=== PATIENT | female | born 1960 | race Caucasian/White ===

== ENCOUNTER 2020-07-18 07:41 | Outpatient (CLI) | payer OTHER, SELFPAY ==
--- NOTE | 2020-07-18 07:52 | ECHO_ITS ---
Patient Info Name: Marianela Vieira Age: 60 years : 1960 Gender: Female Ht: 67 in Wt: 200 lbs BSA: 2.10 m2 BP: 152 / 87 mmHg Technical Quality: Good Exam Date: 07/18/2020 8:01 AM Exam Location: [facility] Patient Status: Outpatient Admit Date: 07/18/2020 Staff Ordering Physician: Carlyn Miles NP Steward/Stewardess Smoke Room: Nicolette Latham RDCS Attending Provider: Carlyn Miles NP Referring Physician: Jd ANDRADE; Exam Type: CA echo doppler color flow Study Info Indications R42 - Dizziness and giddiness Complete two-dimensional, color flow and Doppler transthoracic echocardiogram is performed. Summary 1. Complete two-dimensional, color flow and Doppler transthoracic echocardiogram is performed. 2. Left ventricular chamber dimension is normal. 3. Ventricular septum is sigmoid shaped. No LVOT obstruction. 4. Left ventricular systolic function is normal, estimated at 65-70%. 5. The left ventricular diastolic function is grade I diastolic dysfunction. 6. E/e' 9 is minimally elevated. 7. Global longitudinal strain is normal at -18.8%. 8. Left atrial chamber dimension is mildly enlarged. 9. There is mild aortic valve sclerosis. 10. There is trace mitral valve regurgitation. 11. There is trace tricuspid valve regurgitation. 12. No pulmonary hypertension, estimated pulmonary arterial systolic pressure is 27 mmHg. Left Ventricle E/e' 9 is minimally elevated. Global longitudinal strain is normal at -18.8%. Ventricular septum is sigmoid shaped. No LVOT obstruction. Left ventricular chamber dimension is normal. Left ventricular systolic function is normal, estimated at 65-70%. The left ventricular diastolic function is grade I diastolic dysfunction. Right Ventricle Right ventricular chamber dimension is normal. Right ventricular systolic function is normal. Left Atria Left atrial chamber dimension is mildly enlarged. Right Atria Right atrial chamber dimension is normal. Aortic Valve The aortic valve is trileaflet. There is mild aortic valve sclerosis. There is no aortic valve stenosis. There is no aortic valve regurgitation. Pulmonic Valve There is no pulmonic regurgitation. Mitral Valve There is no mitral valve stenosis. There is trace mitral valve regurgitation. Tricuspid Valve There is trace tricuspid valve regurgitation. No pulmonary hypertension, estimated pulmonary arterial systolic pressure is 27 mmHg. Pericardium/Pleural There is no pericardial effusion. Inferior Vena Cava Normal inferior vena cava with >50% collapse upon inspiration consistent with normal right atrial pressure, 5 mmHg. Aorta The aortic root size at the sinus of Valsalva is normal. Left Ventricular Outflow Tract Name Value Normal LVOT 2D LVOT Diameter 2.0 cm LVOT Doppler LVOT Peak Gradient 4 mmHg LVOT Mean Gradient 2 mmHg LVOT VTI 19 cm LVOT VTI/AV VTI Ratio 0.7 LVOT Stroke Volume 60 ml LVOT CO 5.0 l/min
== END 2020-07-18 07:42 | disposition home or self-care (01) ==
PROVIDERS: PCP Internal Medicine; Visit Provider Nurse Practitioner
DX: R42 Dizziness and giddiness (principal)
CPT/HCPCS: 93306

== ENCOUNTER → 2020-10-04 07:18 | Outpatient (CLI) | payer OTHER, SELFPAY ==
--- NOTE | ~2020-10-04 | MM_ITS ---
EXAMINATION: MM screening [place] BI w elmo HISTORY: Screening mammogram TECHNIQUE: Craniocaudal and mediolateral oblique 3-D tomosynthesis images were obtained and synthetic 2-D images were generated. CAD analysis was submitted and interpreted. COMPARISON: 08/06/2019 diagnostic right digital mammogram and limited right breast ultrasound 07/20/2019, 07/18/2018 bilateral digital screening mammogram examinations BREAST PARENCHYMAL COMPOSITION: There are scattered areas of fibroglandular density. FINDINGS: Scattered bilateral punctate benign microcalcifications. Stable circumscribed 3 mm opacity in the upper inner right breast (craniocaudal Tomosynthesis image 5 7/85; MLO Tomosynthesis image 57/79). There is no evidence of suspicious mass, calcification, or architectural distortion to suggest malign jose in either breast. There has been no suspicious interval change. IMPRESSION: 1. No mammographic evidence of malignancy. 2. Recommend routine screening mammography in one year. BI-RADS Category 2: Benign finding(s). Reviewed, dictated and finalized at location A. SQL DEVELOPER
== END ==
PROVIDERS: PCP Internal Medicine; Visit Provider Nurse Practitioner
DX: Z12.31 Encounter for screening mammogram for malignant neoplasm of breast (principal)
CPT/HCPCS: 77063; 77067

== ENCOUNTER 2021-05-17 10:25 | Emergency (ER) | payer OTHER, SELFPAY ==
[2021-05-17 10:41] VITALS: BP 140/71; PULSE 76; RESP 18; TEMP 37.1; O2SAT 100
--- NOTE | 2021-05-17 10:55 | ED.URI ---
HPI - URI/Sore Throat General Chief Complaint: Upper Respiratory Infection Stated Complaint: Cough,Rt Ear Pain Time Seen by Provider: 05/17/21 10:55 Source: patient Mode of arrival: ambulatory Limitations: no limitations History of Present Illness HPI Narrative: Marianela Vieira is a 60 yo female with a PMH of depression, fibromyalgia, high cholesterol, who comes to express care with R ear pain and runny nose. x 10 days, nose is dry with mucinex; she feels she needs additional medication Related Data Home Medications Medication Instructions Recorded Confirmed aspirin 81 mg tablet,delayed 81 mg PO DAILY 06/09/19 05/17/21 release cholecalciferol (vitamin D3) 25 5,000 unit PO DAILY cap 08/04/19 05/17/21 mcg (1,000 unit) capsule multivitamin 3 tablet PO DAILY tablet 08/04/19 05/17/21 estradiol 1 gm VAGINAL WEEKLY PRN 12/29/19 05/17/21 diclofenac sodium 75 mg PO BID 05/17/21 05/17/21 Allergies Allergy/AdvReac Type Severity Reaction Status Date / Time atorvastatin Allergy Unknown muscle pain Verified 05/17/21 10:51 clarithromycin Allergy Unknown unknown Verified 05/17/21 10:51 codeine Allergy Unknown Hallucinati Verified 05/17/21 10:51 ng erythromycin base Allergy Unknown unknown Verified 05/17/21 10:51 ioversol Allergy Unknown Hives Verified 05/17/21 10:51 levofloxacin Allergy Unknown tendon pain Verified 05/17/21 10:51 naproxen Allergy Unknown runny nose Verified 05/17/21 10:51 pitavastatin Allergy Unknown muscle pain Verified 05/17/21 10:51 pravastatin Allergy Unknown muscle pain Verified 05/17/21 10:51 simvastatin Allergy Unknown muscle pain Verified 05/17/21 10:51 Fpbfzeq-FQK-AsJ Reductase Allergy Unknown ENTIRE Verified 05/17/21 10:51 Inhibitor BODY PAIN [Uczaqxr-Buf-Zpu Reductase Inhibitor] strawberry Allergy Unknown Hives Verified 05/17/21 10:51 Sulfa (Sulfonamide Allergy Unknown itchy Verified 05/17/21 10:51 Antibiotics) throat sulfanilamide Allergy Unknown itchy Verified 05/17/21 10:51 throat adhesive tape AdvReac Unknown RASH Verified 05/17/21 10:51 Contrast Media Allergy Unknown FLUSHING, Uncoded 05/17/21 10:51 WARM, RASH. Review of Systems Review of Systems: CONSTITUTIONAL: Denies fever, chills, sweats. EYES: Denies visual changes, redness, discharge. ENT: Has rhinorrhea, has congestion, minimal sore throat, otalgia. CARDIOVASCULAR: Denies chest pain, palpitations, edema. RESPIRATORY: Denies dyspnea, wheezing, cough GASTROINTESTINAL: Denies abdominal pain, nausea, vomiting, diarrhea. GENITOURINARY: Denies dysuria, hematuria, abnormal discharge SKIN: Denies rash or itching. NEUROLOGIC: Denies numbness, or focal weakness. PSYCHIATRIC: Denies anxiety or depression. [facility], [facility] Past Medical History Medical History Biceps tendonitis on left Bronchitis Cholecystectomy planned Depression Elbow injury Chipped bone in right elbow. Elevated liver enzymes Fibromyalgia Food allergy Hyperlipidemia Hypertension Medial epicondylitis of right elbow Radial head fracture, closed Seasonal allergic rhinitis Shoulder impingement syndrome Shoulder pain Tremor Surgical History Surgical History H/O adenoidectomy H/O knee surgery 1980 H/O sinus surgery H/O: hysterectomy History of appendectomy History of tonsillectomy Family History Family History Father Family history of diabetes mellitus in first degree relative Family history of malignant melanoma Family history of heart disease in male family member before age 55 Diabetes mellitus Hypertension Family history of elevated blood lipids Family history of cardiovascular disease Malignant neoplasm of prostate Mother Family history of malignant neoplasm of skin Grandparent Carcinoma of colon Sibling Family history of elevated blood lipids Other Family
== END 2021-05-17 11:56 | disposition home or self-care (01) ==
PROVIDERS: Emergency Provider Nurse Practitioner; PCP Internal Medicine
DX: J01.00 Acute maxillary sinusitis, unspecified (principal); Z20.822 Contact with and (suspected) exposure to COVID-19; Z87.891 Personal history of nicotine dependence; F32.A Depression, unspecified; M79.7 Fibromyalgia; E78.5 Hyperlipidemia, unspecified; I10 Essential (primary) hypertension; Z79.82 Long term (current) use of aspirin
CPT/HCPCS: 87426; 99213; C9803; G0463

== ENCOUNTER 2021-06-13 00:46 | Day surgery (SDC) | payer OTHER, SELFPAY ==
[2021-05-30 13:22] VITALS: BMI 32.8
[2021-06-13 08:34] VITALS: BP 134/82; PULSE 87; RESP 18; TEMP 36.2; O2SAT 100
--- NOTE | 2021-06-13 08:43 | WPDGICN ---
Assessment and Plan Assessment and plan (1) Family history of colonic polyps: Code(s): Z83.71 - Family history of colonic polyps Status: Acute Assessment and Plan: Patient's father had colon polyps. Patient's last colonoscopy 2015 was unremarkable. Patient presents today for screening colonoscopy. Further recommendations will be given after endoscopy. GI Consult Note Consult date/time: 06/13/21 08:43 HPI: Marianela Vieira is a 60 year old female Presents for screening colonoscopy. Patient states that her own weight appetite and bowel movements are normal. Patient denies any blood in her stools. She denies abdominal pain. Family history is significant that her father had colon polyps. Patient's last colonoscopy in 2015 was unremarkable. Review of Systems Review of Systems: All systems reviewed & are unremarkable except as noted in HPI and below PMFSH Past Medical History Medical History Biceps tendonitis on left Bronchitis Cholecystectomy planned Depression Elbow injury Chipped bone in right elbow. Elevated liver enzymes Fibromyalgia Food allergy Hyperlipidemia Hypertension Medial epicondylitis of right elbow Radial head fracture, closed Seasonal allergic rhinitis Shoulder impingement syndrome Shoulder pain Tremor Surgical History Surgical History H/O adenoidectomy H/O knee surgery 1980 H/O sinus surgery H/O: hysterectomy History of appendectomy History of tonsillectomy Family History Family History Father Family history of diabetes mellitus in first degree relative Family history of malignant melanoma Family history of heart disease in male family member before age 55 Diabetes mellitus Hypertension Family history of elevated blood lipids Family history of cardiovascular disease Malignant neoplasm of prostate Mother Family history of malignant neoplasm of skin Grandparent Carcinoma of colon Sibling Family history of elevated blood lipids Other Family history of allergic disorder Family history of malignant neoplasm Social History Social History Smoking status: Former smoker Second hand tobacco smoke exposure: No Smoking end date: 07/29/09 Alcohol intake: current Drinks per week: 4 Alcohol use details: Pt drinks occasionally. Substance use: unknown Living arrangements: with family Gender identity (if verbalized by the patient): Female Spiritual care concerns: No Meds Home Medications and Allergies Home Medications Medication Instructions Recorded Confirmed Type aspirin 81 mg tablet,delayed 81 mg PO DAILY 06/09/19 05/30/21 History release cholecalciferol (vitamin D3) 25 5,000 unit PO DAILY cap 08/04/19 05/30/21 History mcg (1,000 unit) capsule multivitamin 3 tablet PO DAILY tablet 08/04/19 05/30/21 History lisinopril 10 mg tablet 10 mg PO DAILY #90 tablet 12/21/20 05/30/21 Rx ezetimibe 10 mg tablet 10 mg PO DAILY #90 tablet 03/17/21 05/30/21 Rx milnacipran 50 mg tablet 50 mg PO BID #180 tablet 04/17/21 05/30/21 Rx diclofenac sodium 75 mg PO BID 05/17/21 05/30/21 History bupropion HCl 300 mg 24 hr tablet, 300 mg PO DAILY #90 tablet 05/30/21 05/30/21 Rx extended release omega-3 fatty acids [[place] 3] 1 cap PO DAILY 05/30/21 05/30/21 History Allergies Allergy/AdvReac Type Severity Reaction Status Date / Time atorvastatin Allergy Unknown muscle pain Verified 06/13/21 08:33 clarithromycin Allergy Unknown unknown Verified 06/13/21 08:33 codeine Allergy Unknown Hallucinati Verified 06/13/21 08:33 ng erythromycin base Allergy Unknown unknown Verified 06/13/21 08:33 ioversol Allergy Unknown Hives Verified 06/13/21 08:33 levofloxacin Allergy Unknown tendon pain Verified 06/13/21 08:33 naproxen All
[2021-06-13] MEDS: LACTATED RINGERS 1,000 ML 150 ML IV CONT (08:47)
[2021-06-13] MEDS: AMPICILLIN 2 GM/NS 100 ML 2 GM/100 ML BAG IVPB (08:48)
--- NOTE | 2021-06-13 08:56 | WPDANESEPPF ---
Anes - Initial Pre Proc Eval Procedure: Operation Date: 06/13/21 09:45 Proposed Procedures p Screening Colonoscopy - Chapito Villela MD Date/Time: 06/13/21 08:56 Surgeon: Chapito Villela MD Pre Op Diagnosis: hx of colon polyps Patient Data Age: 60 Gender: F Height: 1.7 m Weight: 93.2 kg Last Vital Signs Temp 97.2 F L 06/13/21 08:34 Pulse 87 06/13/21 08:34 Resp 18 06/13/21 08:34 BP 134/82 06/13/21 08:34 Pulse Ox 100 06/13/21 08:34 Allergies Allergy/AdvReac Type Severity Reaction Status Date / Time atorvastatin Allergy Unknown muscle pain Verified 06/13/21 08:33 clarithromycin Allergy Unknown unknown Verified 06/13/21 08:33 codeine Allergy Unknown Hallucinati Verified 06/13/21 08:33 ng erythromycin base Allergy Unknown unknown Verified 06/13/21 08:33 ioversol Allergy Unknown Hives Verified 06/13/21 08:33 levofloxacin Allergy Unknown tendon pain Verified 06/13/21 08:33 naproxen Allergy Unknown runny nose Verified 06/13/21 08:33 pitavastatin Allergy Unknown muscle pain Verified 06/13/21 08:33 pravastatin Allergy Unknown muscle pain Verified 06/13/21 08:33 simvastatin Allergy Unknown muscle pain Verified 06/13/21 08:33 Ifqjcvp-AKR-LjG Reductase Allergy Unknown ENTIRE Verified 06/13/21 08:33 Inhibitor BODY PAIN [Cywidap-Lsc-Eie Reductase Inhibitor] strawberry Allergy Unknown Hives Verified 06/13/21 08:33 Sulfa (Sulfonamide Allergy Unknown itchy Verified 06/13/21 08:33 Antibiotics) throat sulfanilamide Allergy Unknown itchy Verified 06/13/21 08:33 throat celecoxib [From Celebrex] Allergy Rash Verified 06/13/21 08:33 adhesive tape AdvReac Unknown RASH Verified 06/13/21 08:33 Contrast Media Allergy Unknown FLUSHING, Uncoded 06/13/21 08:33 WARM, RASH. Home Medications Medication Instructions Recorded Confirmed Type aspirin 81 mg tablet,delayed 81 mg PO DAILY 06/09/19 05/30/21 History release cholecalciferol (vitamin D3) 25 5,000 unit PO DAILY cap 08/04/19 05/30/21 History mcg (1,000 unit) capsule multivitamin 3 tablet PO DAILY tablet 08/04/19 05/30/21 History lisinopril 10 mg tablet 10 mg PO DAILY #90 tablet 12/21/20 05/30/21 Rx ezetimibe 10 mg tablet 10 mg PO DAILY #90 tablet 03/17/21 05/30/21 Rx milnacipran 50 mg tablet 50 mg PO BID #180 tablet 04/17/21 05/30/21 Rx diclofenac sodium 75 mg PO BID 05/17/21 05/30/21 History bupropion HCl 300 mg 24 hr tablet, 300 mg PO DAILY #90 tablet 05/30/21 05/30/21 Rx extended release omega-3 fatty acids [[place] 3] 1 cap PO DAILY 05/30/21 05/30/21 History Patient hx anesthesia problems: none Family hx anesthesia problems: none Results Review: All pre-operative results and documents have been reviewed as part of the pre-operative evaluation. [facility] Past Medical History Medical History Biceps tendonitis on left Bronchitis Cholecystectomy planned Depression Elbow injury Chipped bone in right elbow. Elevated liver enzymes Fibromyalgia Food allergy Hyperlipidemia Hypertension Medial epicondylitis of right elbow Radial head fracture, closed Seasonal allergic rhinitis Shoulder impingement syndrome Shoulder pain Tremor Surgical History Surgical History H/O adenoidectomy H/O knee surgery 1980 H/O sinus surgery H/O: hysterectomy History of appendectomy History of tonsillectomy Family History Family History Father Family history of diabetes mellitus in first degree relative Family history of malignant melanoma Family history of heart disease in male family member before age 55 Diabetes mellitus Hypertension Family history of elevated blood lipids Family history of cardiovascular disease Malignant neoplasm of prostate Mother Family history of malignant neoplasm of skin Grandparent Carcinoma of colon Sibling Family history of elev
[2021-06-13 09:50] VITALS: BP 118/66; PULSE 74; RESP 21; O2SAT 100
[2021-06-13 10:00] VITALS: BP 115/67; PULSE 66; RESP 19; O2SAT 100
[2021-06-13 10:10] VITALS: BP 133/79; PULSE 72; RESP 17; O2SAT 100
== END 2021-06-13 10:21 | disposition home or self-care (01) ==
PROVIDERS: PCP Internal Medicine; Visit Provider Internal Medicine Gastroenterology
PROC: 0DJD8ZZ Inspection of Lower Intestinal Tract, Via Natural or Artificial Opening Endoscopic (ICD-10-PCS; CPT 45378; principal; 2021-06-13 09:45)
DX: Z12.11 Encounter for screening for malignant neoplasm of colon (principal); Z83.71 Family history of colonic polyps; K64.8 Other hemorrhoids; K57.30 Diverticulosis of large intestine without perforation or abscess without bleeding; R74.01 Elevation of levels of liver transaminase levels; M79.7 Fibromyalgia; I10 Essential (primary) hypertension; Z79.82 Long term (current) use of aspirin; Z87.891 Personal history of nicotine dependence; E66.9 Obesity, unspecified; Z68.32 Body mass index [BMI] 32.0-32.9, adult
CPT/HCPCS: 45378; J0290; J2704; J7120

== ENCOUNTER → 2021-07-03 13:20 | Outpatient (CLI) | payer OTHER, SELFPAY ==
--- NOTE | ~2021-07-03 | DEXA_ITS ---
Bone Density Report Name: STEFFEN DICK Age: 61 Sex: Female Ethnicity: White Date of : 1960 Indication: postmenopausal; screening for osteoporosis; prior fracture; hysterectomy; Referring Provider: Frida, Janessa Study: Bone densitometry was performed. Exam Date: July 03, 2021 Accession number: [id number] Bone Density: Region BMD T-score Z-score Classification AP Spine (L1-L4) 0.995 -0.5 1.2 Normal Femoral Neck (Left) 0.762 -0.8 0.6 Normal Total Hip (Left) 0.918 -0.2 0.9 Normal Femoral Neck (Right) 0.720 -1.2 0.3 Osteopenia Total Hip (Right) 0.867 -0.6 0.5 Normal Total Hip Mean 0.893 -0.4 0.7 Normal World Health Organization criteria for BMD impression classify patients as: Normal (T-score at or above -1.0), Osteopenia (T-score between -1.0 and -2.5), or Osteoporosis (T-score at or below -2.5). 10-year Fracture Risk(1): Major Osteoporotic Fracture 12% Hip Fracture 0.8% Reported Risk Factors: [place] (), Neck BMD=0.720, BMI=33.5, previous fracture (1) FRAX(R) Version 3.08. Fracture probability calculated for an untreated patient. Fracture probability may be lower if the patient has received treatment. Previous Exams: Region Exam Age BMD T-score BMD Change BMD Change Date g/cm2 vs Baseline vs Previous AP Spine(L1-L4) 07/03/2021 61 0.995 -0.5 -0.107 -0.023 07/18/2018 58 1.018 -0.3 -0.085* -0.035* 06/11/2014 53 1.053 0.1 -0.049* -0.049* 05/05/2010 49 1.102 0.5 Total Hip(Left) 07/03/2021 61 0.918 -0.2 -0.137 -0.010 07/18/2018 58 0.928 -0.1 -0.127* -0.033* 06/11/2014 53 0.960 0.2 -0.094* -0.094* 05/05/2010 49 1.055 0.9 Total Hip(Right) 07/03/2021 61 0.867 -0.6 -0.165 -0.048 07/18/2018 58 0.915 -0.2 -0.117* -0.026 06/11/2014 53 0.941 0.0 -0.091* -0.091* 05/05/2010 49 1.032 0.7 *Denotes significance at 95% confidence level, LSC for AP Spine = 0.022 g/cm2, LSC for Total Hip = 0.027 g/cm2 Clinical Information Provided by Patient: Has had a low trauma fracture Has used the following medications: Vitamin D, MTV Has the following medical conditions: Hysterectomy Patient maximum height was 67 Menopause Age: 28 No regular weight bearing exercise Drinks caffeinated beverages Onset of menses at age 11 Number of children 2
== END ==
PROVIDERS: PCP Internal Medicine; Visit Provider Nurse Practitioner
DX: Z13.820 Encounter for screening for osteoporosis (principal); M85.851 Other specified disorders of bone density and structure, right thigh
CPT/HCPCS: 77080

== ENCOUNTER → 2021-10-12 09:20 | Outpatient (CLI) | payer OTHER, SELFPAY ==
--- NOTE | ~2021-10-12 | MM_ITS ---
EXAMINATION: MM screening [facility] BI w elmo HISTORY: Screening mammogram TECHNIQUE: Craniocaudal and mediolateral oblique 3-D tomosynthesis images were obtained and synthetic 2-D images were generated. CAD analysis was submitted and interpreted. COMPARISON: 10/04/2020, 08/06/2019, 07/20/2019 BREAST PARENCHYMAL COMPOSITION: There are scattered areas of fibroglandular density. FINDINGS: There is no suspicious mass, calcification, or architectural distortion to suggest malignan cy in either breast. There has been no suspicious interval change. IMPRESSION: 1. No mammographic evidence of malignancy. 2. Recommend routine screening mammography in one year. BI-RADS Category 1: Negative Reviewed, dictated and finalized at location A.
== END ==
PROVIDERS: PCP Internal Medicine; Visit Provider Nurse Practitioner
DX: Z12.31 Encounter for screening mammogram for malignant neoplasm of breast (principal)
CPT/HCPCS: 77063; 77067